=== PATIENT | female | born 1955 | race Caucasian/White ===

== ENCOUNTER 2020-06-07 08:28 | Day surgery (SDC) | payer MEDICARE ==
[~2020-06-07] VITALS: Ht 170.2 cm; Wt 77.1 kg
[2020-06-07] MEDS ORDERED: SYNTHROID25 MCG PO (08:47)
[2020-06-07] MEDS ORDERED: NEURONTIN300 MG PO (08:47)
[2020-06-07] MEDS ORDERED: VOLTAREN-XR100 MG PO (08:48)
--- NOTE | 2020-06-07 11:15 | NUR ---
06/07/20 1115 Karolyn Sinclair 1110- PT TO PACU IN LL POSITION. EYES OPEN RESPONDING APPROPRIATELY BUT REMAINS DROWSY. BREATHING EASY AND UNLABORED. SPO2 >95% ON 3 L O2 VIA NC. PT ENCOURAGED TO PASS GAS. 1114- PT PASSING GAS. BREATHING REMAINS EASY AND UNLABORED. SPO2 >95% ON 3 L O2 VIA NC. PT DENIES PAIN OR NAUSEA.
--- NOTE | 2020-06-07 14:49 | OR ---
[facility] [address] [facility], [place] [address] Signed DATE OF OPERATION: 06/07/2020 SURGEON: Ilir Rizvi MD PREOPERATIVE DIAGNOSIS: History of colonic polyps, last in 2010. POSTOPERATIVE DIAGNOSIS: Normal colon to cecum. PROCEDURE: Total colonoscopy to cecum. ANESTHESIA: Intravenous sedation, fentanyl 100 mcg and Versed 5 mg. INDICATION: This 64-year-old white woman is a patient of DARON Mark. She is here for colonoscopy. She underwent colonoscopy in [address] Fish in [place] and had at least 2 colonoscopies in the past. She was noted to have polyps on the last colonoscopy. She has had no rectal bleeding, but does have a feeling of constipation. She has no family history of colon cancer that she is aware of. She is admitted at this time to undergo surveillance colonoscopy and understand the risks of bleeding, infection, perforation. FINDINGS: The prep was excellent. Complete colonoscopy was undertaken to the cecum without question. The colon was entirely normal. DESCRIPTION OF PROCEDURE: The patient was brought to the endoscopy suite and placed in lateral decubitus position, given intravenous sedation to the point of slurred speech and nystagmus. Digital rectal examination was normal. The Olympus video colonoscope was passed in the rectum and manipulated throughout the colon ultimately intubating the cecum itself. The prep was quite notably good. The scope was withdrawn from the cecum and careful examination upon withdrawal of scope showed no sign of polyps, diverticular formation, colitis or cancer. Retroflex view was normal as well. The scope was removed. The patient was taken to the recovery room in good condition. CONCLUSION DIAGNOSIS: Electronically Signed By: ILIR RIZVI MD 06/07/20 1449 PATIENT NAME: ALEXIS MAYFIELD OPERATIVE REPORT DATE OF : 51 REPORT #: [id number] PHYSICIAN: ILIR RIZVI MD PCP: VIRIDIANA GIPSON PAC REPORT IS CONFIDENTIAL AND NOT TO BE RELEASED WITHOUT AUTHORIZATION [facility] [address] [place] [id number] Signed Normal colon to cecum. PLAN: Recommend a repeat colonoscopy in 10 years sooner if clinically indicated. She will return to the ongoing care of Viridiana Gipson. MD ALEXANDER Gandhi/MODL /[id number] cc: DARON Rolon Copies: ~ Electronically Signed By: ILIR RIZVI MD 06/07/20 1449 PATIENT NAME: ALEXIS MAYFIELD OPERATIVE REPORT DATE OF : 51 REPORT #: [id number] PHYSICIAN: ILIR RIZVI MD PCP: VIRIDIANA GIPSON PAC REPORT IS CONFIDENTIAL AND NOT TO BE RELEASED WITHOUT AUTHORIZATION
== END 2020-06-07 11:45 | disposition home or self-care (01) ==
LOC: DS 08:28 → OPS 08:28 → DS 09:15 → OPS 11:45
PROVIDERS: Surgery
PROC: 0DJD8ZZ Inspection of Lower Intestinal Tract, Via Natural or Artificial Opening Endoscopic (ICD-10-PCS; principal; 2020-06-07 09:15)
DX: Z12.11 Encounter for screening for malignant neoplasm of colon (principal); E03.9 Hypothyroidism, unspecified; Z86.010 Personal history of colon polyps; Z88.0 Allergy status to penicillin; Z79.899 Other long term (current) drug therapy
CPT/HCPCS: G0105; 99153; G0500; J2250; J3010; J7121

== ENCOUNTER 2025-05-14 12:47 | Day surgery (SDC) | payer MEDICARE ==
[~2025-05-14] VITALS: Ht 170.2 cm; Wt 77.1 kg
[~2025-05-14 12:47] MED LIST: AMITRIPTYLINE H10 MG PO; DICLOFENAC SOD100 MG PO; HYDROCODON-ACE1 EA10 PO; IBLOOD GLUCOSE TEST STRIP 1 EA TEST VI PRN; LACTATED RINGER'S 1,000 ML IV SCH; LEVOTHYROXINE112 MCG PO; LIDOCAINE HCL 1% 5 ML SDV INJ ONE; MIDAZOLAM HCL 5 MG/5 ML VIAL IV PRN; NEURONTIN300 MG PO; ONE DAILY COMP1 EACH PO; PEPCID40 MG PO; SYNTHROID25 MCG PO; VITAMIN D21250 MCG PO; VOLTAREN-XR100 MG PO; fentaNYL citrate 100 MCG/2 ML VIAL IV PRN
[2025-05-14 13:25] VITALS: BP 122/71
[2025-05-14] MEDS ORDERED: MIDAZOLAM HCL 5 MG/5 ML VIAL ONE (14:07)
[2025-05-14] MEDS ORDERED: fentaNYL citrate 100 MCG/2 ML VIAL ONE (14:08)
[2025-05-14 16:17] VITALS: BP 134/74
--- NOTE | 2025-05-14 16:33 | NUR ---
05/14/25 1633 Hien Padilla 1501 PT ARRIVED IN PACU SLEEPY. ABD SOFT AND PASSING FLATUS. 1515 DR AT BEDSIDE. ALL QUESTIONS ANSWERED. 1530 RESTING. REU. 1545 SITTING AT BEDSIDE SIPPING ON JUICE. 1550 GETTING DRESSED. 1600 DC INSTRUCTIONS. LEFT VIA W/C.
--- NOTE | 2025-05-14 17:31 | OR ---
[facility] [address] [place], [place] [address] Signed DATE OF OPERATION: 05/14/2025 SURGEON: Ilir Rizvi MD PREOPERATIVE DIAGNOSES: 1. Heme-positive stool. 2. History of infectious diarrhea (treated and resolved). POSTOPERATIVE DIAGNOSIS: Normal colon to cecum. PROCEDURE: Total colonoscopy to cecum. ANESTHESIA: Intravenous sedation fentanyl 100 mcg, Versed 6 mg. INDICATION: This 69-year-old woman is a patient of DARON Rolon. She last underwent colonoscopy in 2019, at that time colon was normal. She had colonoscopy once again in [address] Maxim Fish in [place]. On April 13 of this year, she thought to have contracted an infectious diarrhea after eating in a restaurant in [place], [place]. She believes that she had E coli and numerous stool studies, none of those results which are known to me entirely. She has no gross blood per rectum, but based on the heme-positive stool colonoscopy was recommended by her provider. The risk of bleeding, infection, and perforation related to colonoscopy were reviewed with her in detail. She understands and wished to proceed. FINDINGS: The prep was quite excellent. Complete colonoscopy was undertaken of the cecum with full intubation of the cecum. There was no evidence of blood and no lesion to account for bleeding, specifically no polyps, diverticular formation, colitis, or cancer. DESCRIPTION OF PROCEDURE: The patient was brought to the endoscopy suite and placed in lateral decubitus position, given intravenous sedation to the point of slurred speech and nystagmus. Digital rectal examination was normal. Electronically Signed By: ILIR RIZVI MD 05/14/25 1731 PATIENT NAME: ALEXIS MAYFIELD OPERATIVE REPORT DATE OF : 51 REPORT #: [id number] PHYSICIAN: ILIR RIZVI MD PCP: VIRIDIANA GIPSON PAC REPORT IS CONFIDENTIAL AND NOT TO BE RELEASED WITHOUT AUTHORIZATION [facility] [address] [place] [id number] Signed An Olympus video colonoscope was passed in the rectum and manipulated throughout the colon ultimately intubating the cecum itself. The ileocecal valve and appendiceal orifice were normal. The scope was withdrawn from that point. Examination throughout showed no sign of abnormality. Certainly no polyps or colitis. Retroflexed view of the rectum was normal. Scope was removed. The patient was taken to the recovery room in good condition. CONCLUDING DIAGNOSIS: Normal-appearing colon. PLAN: Recommend repeat colonoscopy in 10 years, sooner if symptoms should develop. Recommend high-fiber diet generally. She did have a few diverticula which are likely asymptomatic. MD ALEXANDER Gandhi/MACY /[id number] cc: Viridiana Gipson PA-C Copies: ~ Electronically Signed By: ILIR RIZVI MD 05/14/25 1731 PATIENT NAME: ALEXIS MAYFIELD OPERATIVE REPORT DATE OF : 51 REPORT #: [id number] PHYSICIAN: ILIR RIZVI MD PCP: VIRIDIANA GIPSON PAC REPORT IS CONFIDENTIAL AND NOT TO BE RELEASED WITHOUT AUTHORIZATION
== END 2025-05-14 16:00 | disposition home or self-care (01) ==
LOC: OPS 12:47 → DS 12:47 → OPS 14:00
PROVIDERS: ATTEND Surgery
PROC: 0DJD8ZZ Inspection of Lower Intestinal Tract, Via Natural or Artificial Opening Endoscopic (ICD-10-PCS; principal; 2025-05-14 14:00)
DX: R19.5 Other fecal abnormalities (principal); E03.9 Hypothyroidism, unspecified; Z86.0100 Personal history of colon polyps, unspecified; Z88.0 Allergy status to penicillin; G89.29 Other chronic pain
CPT/HCPCS: 99153; G0500; J2250; J3010; J7121